=== PATIENT | female | born 1965 | race Caucasian/White ===

== ENCOUNTER 2019-10-12 01:32 | Emergency (ER) | payer SELFPAY ==
[~2019-10-12] VITALS: Ht 170.2 cm; Wt 77.6 kg
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
--- NOTE | 2019-10-12 04:36 | NUR ---
PATIENT IS ASLEEP. EASILY AROUSABLE THROUGH TACTILE AND VERBAL STIMULI. CONNECTED TO MONITOR. BREATHING EVENLY AND UNLABORED ON ROOM AIR. CALL LIGHT WITHIN REACH. SIDE RAILS UP FOR SAFETY. SITTER AT BEDSIDE.
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
--- NOTE | 2019-10-12 05:48 | NUR ---
PATIENT DOES NOT HAVE A STEADY GAIT. MD NOTIFIED.
--- NOTE | 2019-10-12 07:28 | NUR ---
ENDORSEMENT RECEIVED FROM BEN SULLIVAN FOR RADHA
[2019-10-12 09:24] VITALS: BP 128/71
--- NOTE | 2019-10-12 09:24 | NUR ---
PATIENT AWAKE. HOOKED TO MONITOR, VSS. WILL CONTINUE TO MONTIOR ACCORDINGLY
--- NOTE | 2019-10-12 09:41 | NUR ---
PROVIDED W BREAKFAST TRAY. TOLERATING PO WELL.
--- NOTE | 2019-10-12 10:20 | NUR ---
UNCOOPERATIVE, REFUSES TO COOPERATE WITH MARINE TECHNICIAN, VERBALLY ABUSIVE, THREATENING STAFF.
--- NOTE | 2019-10-12 10:21 | NUR ---
CODE TERRY ACTIVATED.
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
== END 2019-10-12 10:28 | disposition home or self-care (01) ==
LOC: EDBD → ER 01:34
DX: F10.129 Alcohol abuse with intoxication, unspecified (principal); F17.200 Nicotine dependence, unspecified, uncomplicated; Y90.9 Presence of alcohol in blood, level not specified

== ENCOUNTER 2019-10-12 11:25 | Emergency (ER) | payer MEDICAID ==
[~2019-10-12] VITALS: Ht 170.2 cm; Wt 77.1 kg
[2019-10-12] MEDS ORDERED: OLANZAPINE 10 MG VIAL IM ONE (11:34)
[2019-10-12] MEDS ORDERED: LORAZEPAM INJ 2 MG/ML VIAL ONE (11:35)
[2019-10-12] MEDS: OLANZAPINE 10 MG VIAL IM ONE (11:40)
[2019-10-12] MEDS: LORAZEPAM INJ 2 MG/ML VIAL IM ONE (11:40)
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
[2019-10-12 11:55] LABS: BASOPHILS # (AUTO) 0.1 /CMM (0.0-0.2); BASOPHILS % (AUTO) 0.7 % (0.0-2.0); EOSINOPHILS % (AUTO) 3.1 % (0.0-6.0); HEMATOCRIT 44 % (33-45); HEMOGLOBIN 14.5 g/dL (11.5-14.8); LYMPHOCYTES # (AUTO) 2.5 /CMM (0.8-4.8); LYMPHOCYTES % (AUTO) 35.1 % (20.0-44.0); MEAN CORPUSCULAR HGB CONC 33 g/dl (31.0-36.0); MEAN CORPUSCULAR VOLUME 88 fL (82-100); MONOCYTES # (AUTO) 0.5 /CMM (0.1-1.30); MONOCYTES % (AUTO) 7.3 % (2.0-12.0); NEUTROPHILS # (AUTO) 3.8 /CMM (1.8-8.9); NEUTROPHILS % (AUTO) 53.8 % (43.0-81.0); PLATELET COUNT (AUTO) 295 /CMM (150-450); RED BLOOD CELL COUNT(AUTO) 5.02 MIL/uL (4.0-5.2)
[2019-10-12 12:06] LABS: CALCIUM, SERUM 8.6 mg/dL (8.5-10.1); CREATININE 0.7 mg/dL (0.6-1.3)
[2019-10-12 12:17] LABS: ALBUMIN 3.5 g/dL (3.4-5.0); BILIRUBIN,DIRECT 0.1 mg/dL (0.0-0.2); BILIRUBIN,TOTAL 0.4 mg/dL (0.2-1.0); SALICYLATE 2.6 mg/dL (2.8-20.0); TOTAL PROTEIN, SERUM 6.7 g/dL (6.4-8.2)
[2019-10-12 13:00] VITALS: BP 112/65
--- NOTE | 2019-10-12 13:00 | NUR ---
Patient is resting comfortably in bed with eyes closed. Easily aroused. VSS. ON TELE, NSR, NO ACUTE DISTRESS NOTED AT THIS TIME.
--- NOTE | 2019-10-12 13:26 | NUR ---
COMPANY PILOT conducted chart review and clinicals faxed to [facility] intake dept.
--- NOTE | 2019-10-12 13:32 | NUR ---
TABLE GAMES DUAL RATE SUPERVISOR contacted Dusty at [facility] and initiated referral process for voluntary psychiatric admission.
--- NOTE | 2019-10-12 13:49 | NUR ---
KIMBERLYN CALLED FROM [facility] IN [place] PT IS ACCEPTED IN [place] [address]. CALL [phone] FOR REPORT.
--- NOTE | 2019-10-12 14:01 | NUR ---
CALLED [facility] BY LUIS FELIPE TRIP NUMBER [id number] ETA [id number]
--- NOTE | 2019-10-12 14:24 | NUR ---
REPORT GIVEN TO NATE GARCIA FOR RADHA
== END 2019-10-12 16:04 ==
LOC: EDBD 11:27 → ER 11:27
DX: R45.851 Suicidal ideations (principal); F10.129 Alcohol abuse with intoxication, unspecified; F17.200 Nicotine dependence, unspecified, uncomplicated; Z79.899 Other long term (current) drug therapy; Y90.1 Blood alcohol level of 20-39 mg/100 ml
CPT/HCPCS: 36415; 80048; 80076; 80307; 80329; 84702; 85025; 96372 ×2; 99285; G0480; J2060; J3490